=== PATIENT | female | born 2000 | race Caucasian/White ===

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

== ENCOUNTER 2020-03-10 04:25 | Emergency (ER) | payer BC ==
[2020-03-10] MEDS ORDERED: Ondansetron 4 MG/2 ML SDV IVPUSH ONE (04:48)
[2020-03-10] MEDS ORDERED: Sodium Chloride 0.9% 10 ML Syringe FLUSH PRN (04:48)
[2020-03-10] MEDS ORDERED: Ketorolac 30 MG/ML SDV IVPUSH ONE (04:48)
--- NOTE | 2020-03-10 04:52 | EDM.PDOC ---
ED HPI GENERAL MEDICAL PROBLEM - General Chief Complaint: Abdominal Pain Stated Complaint: Right lower abominal pain Time Seen by Provider: 03/10/20 04:45 Source of Information: Reports: Patient - History of Present Illness INITIAL COMMENTS - FREE TEXT/NARRATIVE: Bjorn is a 19 y.o female who comes to the ER with RLQ and epigastric pain that woke her from sleep. She rates the pain as 8/10 and describes it has sharp and constant. She is slightly nauseated with the pain. No vomiting, but she is nauseated. [place] fine when she went to bed. RLQ abdomen Pain Score (Numeric/FACES): 3 - Related Data Allergies Allergy/AdvReac Type Severity Reaction Status Date / Time No Known Allergies Allergy Verified 03/10/20 04:49 Home Meds: Home Meds Nitrofurantoin Monohyd/M-Cryst [Macrobid 100 mg Capsule] 100 mg PO BID 7 Days #14 capsule 03/10/20 [Rx] Past Medical History - Past Health History Medical/Surgical History: Denies Medical/Surgical History HEENT History: Reports: Other (See Below) Other HEENT History: Strep throat Neurological History: Reports: Other (See Below) Other Neuro History: headaches/?migraines Review of Systems - Review of Systems Review Of Systems: See Below Constitutional: Reports: No Symptoms Eyes: Reports: No Symptoms Ears: Reports: No Symptoms Nose: Reports: No Symptoms Mouth/Throat: Reports: No Symptoms Respiratory: Reports: No Symptoms Cardiovascular: Reports: No Symptoms GI/Abdominal: Reports: Abdominal Pain, Nausea Genitourinary: Reports: Dysuria Musculoskeletal: Reports: No Symptoms Skin: Reports: No Symptoms Neurological: Reports: No Symptoms Psychiatric: Reports: No Symptoms ED EXAM, GENERAL - Physical Exam Exam: See Below Exam Limited By: No Limitations General Appearance: Alert, WD/WN, No Apparent Distress (Adult female) Ears: Hearing Grossly Normal Nose: Normal Inspection, Normal Mucosa Throat/Mouth: Normal Inspection, Normal Voice Head: Atraumatic, Normocephalic Neck: Normal Inspection Respiratory/Chest: No Respiratory Distress, Lungs Clear, Chest Non-Tender Cardiovascular: Normal Peripheral Pulses, Regular Rate, Rhythm, No Murmur GI/Abdominal: Normal Bowel Sounds, Soft, No Mass, Tender (RLQ and epigastrum, no rebound tenderness) (Female) Exam: Deferred Rectal (Female) Exam: Deferred Back Exam: Normal Inspection. No: CVA Tenderness (L), CVA Tenderness (R) Extremities: Normal Inspection, Normal Capillary Refill Neurological: Alert, Oriented, CN II-XII Intact, No Motor/Sensory Deficits Psychiatric: Normal Affect, Normal Mood Lymphatic: No Adenopathy Course - Vital Signs Text/Narrative:: The patient was seen by the [facility]. Labs ordered. She was given Toradol 30mg IVP and Zofran 4mg IVP. 0540 Labs reviewed. Will treat patient for UTI. She was given one dose of Macrobid in the ER. Discharge instructions were given and she was sent home in stable condition. Last Recorded V/S: Last Vital Signs Temp 36.6 C 03/10/20 04:25 Pulse 66 03/10/20 04:25 Resp 16 03/10/20 04:25 BP 111/67 03/10/20 04:25 Pulse Ox 98 03/10/20 04:25 The patient was seen by the [facility] [employer]. Labs ordered. She was given Toradol 30mg IVP and Zofran 4 mg IVP. - Orders/Labs/Meds Orders: Active Orders 24 hr Category Date Time Status CULTURE URINE [RM] Stat Lab 03/10/20 04:40 Received Sodium Chloride 0.9% [Saline Flush] Med 03/10/20 04:48 Active 10 ml FLUSH ASDIRECTED PRN Saline Lock Insert [OM.PC] Stat Oth 03/10/20 04:48 Ordered Medication Orders Sodium Chloride (Saline Flush) 10 ml FLUSH ASDIRECTED PRN PRN Reason: Keep Vein Open Labs: Laboratory Tests 03/10/20 03/10/20 03/10/20 Range/Units 04:40 04:40 05:04 WBC 13.2 H (4.0-10.0) x10^3/uL RBC 4.21 (4.00-5.50) x10^6/uL Hgb 13.0 (12.0-16.0) g/dL Hct 37.9 (33.0-47.0) % MCV 90.0 (78.0-93.0) fL MCH 30.9 (26.0-32.0) pg MCHC 34.3 (32.0-36.0) g/dL RDW Coeff of Mary Kate 12.2 (10.0-15.0) % Plt Count 271 (130-400) x10^3/uL Neut % (Auto) 64.6 (50.0-80.0) % Lymph % (Auto) 26.8 (25.0-50.0) % [place] % (Auto) 7.0 (2.0-11.0) % Eos % (Auto) 1.4 (0.0-4.0) % Baso % (Auto) 0.2 (0.2-1.2) % Sodium (136-145) mmol/L Potassium (3.5-5.1) mmol/L Chloride (98-107) mmol/L Carbon Dioxide (21-32) mmol/L Anion Gap (10-20) mmol/L BUN (7-18) mg/dL Creatinine (0.55-1.02) mg/dL Est Cr Clr Drug Dosing mL/min Estimated GFR (MDRD) Glucose (74-106) mg/dL Calcium (8.5-10.1) mg/dL Corrected Calcium (8.5-10.1) mg/dL Total Bilirubin (0.2-1.0) mg/dL AST (15-37) U/L ALT (14-59) U/L Alkaline Phosphatase (46-116) U/L Total Protein (6.4-8.2) g/dL Albumin (3.4-5.0) g/dL Globulin Albumin/Globulin Ratio Urine Color Yellow (YELLOW) Urine Appearance Turbid H (CLEAR) Urine pH 6.5 (5.0-8.0) Ur Specific [place] 1.025 Urine Protein 30 H (NEGATIVE) mg/dL Urine Glucose (UA) Negative (NEGATIVE) mg/dL Urine Ketones Negative (NEGATIVE) mg/dL Urine Occult Blood Moderate H (NEGATIVE) Urine Nitrite Negative (NEGATIVE) Urine Bilirubin Negative (NEGATIVE) Urine Urobilinogen 0.2 (0.2) EU/dL Ur Leukocyte Esterase Moderate H (NEGATIVE) Urine RBC 5-10 H (NOT SEEN) /HPF Urine WBC Semi-packed H (NOT SEEN) /HPF Ur Squamous Epith Cells Few H (NEGATIVE) /HPF Urine Bacteria Few H (NEGATIVE) /HPF Urine Mucus Few H (NEGATIVE) /LPF Ur Yeast w Hyphae Few Urine HCG, Qual Negative (NEGATIVE) 03/10/20 Range/Units 05:04 WBC (4.0-10.0) x10^3/uL RBC (4.00-5.50) x10^6/uL Hgb (12.0-16.0) g/dL Hct (33.0-47.0) % MCV (78.0-93.0) fL MCH (26.0-32.0) pg MCHC (32.0-36.0) g/dL RDW Coeff of Mary Kate (10.0-15.0) % Plt Count (130-400) x10^3/uL Neut % (Auto) (50.0-80.0) % Lymph % (Auto) (25.0-50.0) % [place] % (Auto) (2.0-11.0) % Eos % (Auto) (0.0-4.0) % Baso % (Auto) (0.2-1.2) % Sodium 139 (136-145) mmol/L Potassium 3.4 L (3.5-5.1) mmol/L Chloride 105 (98-107) mmol/L Carbon Dioxide 24 (21-32) mmol/L Anion Gap 13.4 (10-20) mmol/L BUN 8 (7-18) mg/dL Creatinine 0.8 (0.55-1.02) mg/dL Est Cr Clr Drug Dosing 92.79 mL/min Estimated GFR (MDRD) > 60 Glucose 89 (74-106) mg/dL Calcium 8.8 (8.5-10.1) mg/dL Corrected Calcium 8.88 (8.5-10.1) mg/dL Total Bilirubin 0.5 (0.2-1.0) mg/dL AST 20 (15-37) U/L ALT 17 (14-59) U/L Alkaline Phosphatase 75 (46-116) U/L Total Protein 7.3 (6.4-8.2) g/dL Albumin 3.9 (3.4-5.0) g/dL Globulin 3.4 Albumin/Globulin Ratio 1.15 Urine Color (YELLOW) Urine Appearance (CLEAR) Urine pH (5.0-8.0) Ur Specific [place] Urine Protein (NEGATIVE) mg/dL Urine Glucose (UA) (NEGATIVE) mg/dL Urine Ketones (NEGATIVE) mg/dL Urine Occult Blood (NEGATIVE) Urine Nitrite (NEGATIVE) Urine Bilirubin (NEGATIVE) Urine Urobilinogen (0.2) EU/dL Ur Leukocyte Esterase (NEGATIVE) Urine RBC (NOT SEEN) /HPF Urine WBC (NOT SEEN) /HPF Ur Squamous Epith Cells (NEGATIVE) /HPF Urine Bacteria (NEGATIVE) /HPF Urine Mucus (NEGATIVE) /LPF Ur Yeast w Hyphae Urine HCG, Qual (NEGATIVE) Meds: Medications Generic Name Dose Route Start Last Admin Trade Name Freq PRN Reason Stop Dose Admin Sodium Chloride 10 ml 03/10/20 04:48 Saline Flush FLUSH ASDIRECTED PRN Keep Vein Open Discontinued Medications Generic Name Dose Route Start Last Admin Trade Name Freq PRN Reason Stop Dose Admin Ketorolac Tromethamine 30 mg 03/10/20 04:48 03/10/20 05:11 Toradol IVPUSH 03/10/20 04:49 30 mg ONETIME ONE Administration Ondansetron HCl 4 mg 03/10/20 04:48 03/10/20 05:09 Zofran IVPUSH 03/10/20 04:49 4 mg ONETIME ONE Administration Departure - Departure Time of Disposition: 05:40 Disposition: Home, Self-Care 01 Condition: Good Clinical Impression: UTI (urinary tract infection) - Discharge Information *PRESCRIPTION DRUG MONITORING PROGRAM REVIEWED*: No *COPY OF PRESCRIPTION DRUG MONITORING REPORT IN PATIENT [place]: No Prescriptions: Nitrofurantoin Monohyd/M-Cryst [Macrobid 100 mg Capsule] 100 mg PO BID 7 Days #14 capsule Instructions: Urinary Tract Infection, Adult Forms: ED Department Discharge Additional Instructions: -Macrobid 100mg oral twice daily #14(Rx) -Get some Urinary Pain Relief tablets (Such as AZO or the generic) and take 1 tablet 3-4 times daily as needed for bladder pain. -Drink plenty of water. -Use ibuprofen or acetaminophen as needed for pain -Follow up with your PCP if you are not getting any better or return to the ER with any concerns Sepsis Event Note (ED) - Focused Exam Vital Signs: Vital Signs Temp Pulse Resp BP Pulse Ox 03/10/20 04:25 36.6 C 66 16 111/67 98 - My Orders Last 24 Hours: My Active Orders 03/10/20 04:40 CULTURE URINE [RM] Stat 03/10/20 04:48 Sodium Chloride 0.9% [Saline Flush] 10 ml FLUSH ASDIRECTED PRN Saline Lock Insert [OM.PC] Stat - Assessment/Plan Last 24 Hours: My Active Orders 03/10/20 04:40 CULTURE URINE [RM] Stat 03/10/20 04:48 Sodium Chloride 0.9% [Saline Flush] 10 ml FLUSH ASDIRECTED PRN Saline Lock Insert [OM.PC] Stat
[2020-03-10 05:32] LABS: ANION GAP 13.4 mmol/L (10-20); CHLORIDE,CL 105 mmol/L (98-107); SODIUM,NA 139 mmol/L (136-145)
[2020-03-10] MEDS ORDERED: Nitrofurantoin Monohydrate/Macrocrystalline 100 MG Cap PO ONE (06:00)
== END 2020-03-10 05:58 | disposition home or self-care (01) ==
LOC: VM.ED 04:25
DX: N39.0 Urinary tract infection, site not specified (principal)
CPT/HCPCS: 80053; 81001; 81025; 85025; 87086; 96374; 96375; 99283; 99284-25; A9270-GY; J1885; J2405